=== PATIENT | male | born 1955 | race Caucasian/White ===

== ENCOUNTER → 2019-08-19 | Outpatient (CLI) | payer BC ==
--- NOTE | 2019-08-19 10:38 | Diagnostic Imaging Report ---
X-ray chest PA and lateral Comparison: None History: Left-sided rib pain for 6 months. Findings: The top of the chest and lower neck are excluded from this image. Central airways unremarkable. Heart size normal. Slight prominence of the ascending aorta. Mediastinal contours otherwise unremarkable. No pleural effusion. No pneumothorax. No focal lung disease. Upper abdomen unremarkable. Visualized spine unremarkable. No significant abnormality of the visualized ribs. Impression: Given the limitations, there is no significant acute cardiopulmonary disease. Specifically, no left rib lesions are seen. Additional imaging such as a bone scan might be considered. Signed by: Candelario Pepe MD on 08/19/2019 10:35 AM
--- NOTE | 2019-08-19 10:41 | Diagnostic Imaging Report ---
X-ray bilateral RIBS History: Left-sided rib pain Findings: No fracture, subluxation, lytic or blastic lesion, soft tissue abnormality around the ribs. Impression: No significant abnormality. Additional imaging such as bone scan may be considered if there is a concern. Signed by: Candelario Pepe MD on 08/19/2019 10:37 AM
--- NOTE | 2019-08-19 10:52 | Diagnostic Imaging Report ---
X-ray pelvis multiple views History: Knot in the right pelvis Findings: No acute fracture or subluxation. No lytic lesion visualized. There is abnormal exophytic bony growth projecting into the obturator foramen from the inferior aspect of the right superior pubic ramus. It does not show any aggressive features otherwise. It could represent a poorly healed fracture, an osteophyte, an enthesophyte or myositis ossificans. There are degenerative changes in the hip joints bilaterally. There is degenerative disease at L5-S1 level. Impression: An area of abnormal ossification associated with the superior pubic ramus on the right side as described above. Degenerative changes of both hip joints and L5-S1 intervertebral disc. Signed by: Candelario Pepe MD on 08/19/2019 10:48 AM
== END ==
LOC: RAD 09:09
PROVIDERS: ATTEND Family Medicine
DX: R07.89 Other chest pain (principal); R07.81 Pleurodynia; R10.31 Right lower quadrant pain
CPT/HCPCS: 71046; 71111; 72190